=== PATIENT | male | born 1995 | race Caucasian/White ===

== ENCOUNTER 2018-03-20 21:33 | Emergency (ER) | payer OTHER ==
[2018-03-20 21:34] VITALS: BMI 36.2
[2018-03-20] MEDS ORDERED: Sodium Chloride 0.9% 1,000 ML IV ONE ×2 (22:16→22:29)
[2018-03-20 22:45] LABS: BASO % 0.3 % (0.0-2.0); EOS # 0.1 K/uL (0.0-0.7); EOS % 0.4 % (0.0-4.0); HEMOGLOBIN 15.1 g/dL (12.0-18.0); LYMPH % 6.2 % (20.0-40.0); MEAN CELL VOLUME 82.4 fL (80.0-94.0); MEAN CORPUSCULAR HEMOGLOBIN 28.8 pg (27.0-31.0); MEAN PLATELET VOLUME 7.8 fL (7.2-11.7); MONO # 0.8 K/uL (0.0-0.8); MONO % 5.1 % (0.0-10.0); NEUT # 14.4 K/uL (1.8-7.0); PLATELET COUNT 251 K/uL (130-400); RBC 5.25 Mil/uL (4.40-5.90); RED CELL DISTRIBUTION WIDTH 13.5 % (11.5-14.5)
[2018-03-20 22:46] LABS: WHITE BLOOD COUNT 16.3 K/uL (4.8-10.8)
[2018-03-20 22:49] LABS: URINE BACTERIA RARE (<OCC); URINE BILIRUBIN NEGATIVE (NEGATIVE); URINE BLOOD 1+ (NEGATIVE); URINE CLARITY Clear (Clear); URINE COLOR Yellow (YELLOW); URINE GLUCOSE (UA) NORMAL (Normal); URINE LEUKOCYTE ESTERASE NEG Leu/uL (Negative); URINE PROTEIN NEGATIVE (NEGATIVE); URINE UROBILINOGEN NORMAL mg/dL (0.2-1.0)
[2018-03-20 22:58] LABS: ALB/GLOB RATIO 1.3 (1.0-2.1); ALBUMIN 4.7 g/dL (3.5-5.0); ALT/SGPT 46 U/L (21-72); AST/SGOT 31 U/L (17-59); BLOOD UREA NITROGEN 14 mg/dL (9-20); CALCIUM 9.2 mg/dl (8.6-10.4); GFR AFRICAN-AMERICAN > 60; GFR NON-AFRICAN AMERICAN > 60; LIPASE 53 U/L (23-300)
[2018-03-20 23:04] LABS: BANDS 3 % (0-2); EOSINOPHIL 1 % (0-4); LYMPHOCYTE 5 % (20-40); MONOCYTE 5 % (0-10); NEUTROPHIL 86 % (50-75); PLATELET ESTIMATE NORMAL (NORMAL); TOTAL CELLS COUNTED 100
--- NOTE | 2018-03-20 23:50 | C.PDOC ---
History Of Present Illness <Rocael Almonte DO - Last Filed: 03/21/18 01:14> <Dick Caballero - Last Filed: 03/21/18 04:38> 22 y/o male presents to the ED complaining of epigastric pain developing since yesterday. Associated with diarrhea and vomiting, non-bilious and non-bloody. Patient admits symptoms began after consuming hot dogs and beer yesterday. Otherwise denies any fever, chest pain, SOB, or blood in the stool/urine. (Rocael Almonte DO) History Per: Patient History/Exam Limitations: no limitations Onset/Duration Of Symptoms: Days Current Symptoms Are (Timing): Still Present Location Of Pain/Discomfort: Epigastric <Rocael Almonte DO - Last Filed: 03/21/18 01:14> Context: Food Severity: Moderate Pain Scale Rating Of: 5 <Dick Caballero - Last Filed: 03/21/18 04:38> Time Seen by Provider: 03/20/18 22:05 Chief Complaint (Nursing): Chest Pain Past Medical History Reviewed: Historical Data, Nursing Documentation, Vital Signs - Medical History PMH: No Chronic Diseases Surgical History: No Surg Hx Family History: States: No Known Family Hx - Social History Hx Tobacco Use: No (former) Hx Alcohol Use: Yes Hx Substance Use: No - Immunization History Hx Tetanus Toxoid Vaccination: No Hx Influenza Vaccination: No Hx Pneumococcal Vaccination: No <Rocael Almonte DO - Last Filed: 03/21/18 01:14> Vital Signs: Last Vital Signs Temp 101 F H 03/20/18 23:59 Pulse 99 H 03/21/18 03:09 Resp 17 03/21/18 03:09 BP 119/73 03/20/18 23:59 Pulse Ox 96 03/21/18 03:09 - [facility] Procedures TETANUS TOXOID ADMINIST (04/13/13) Review Of Systems Constitutional: Negative for: Fever Cardiovascular: Negative for: Chest Pain Respiratory: Negative for: Shortness of Breath Gastrointestinal: Positive for: Vomiting, Abdominal Pain, Diarrhea. Negative for: Hematochezia Genitourinary: Negative for: Hematuria <Rocael Almonte DO - Last Filed: 03/21/18 01:14> Physical Exam - Physical Exam Appears: Non-toxic, No Acute Distress Skin: Normal Color, Warm, Dry Head: Atraumatic, Normacephalic Eye(s): bilateral: Normal Inspection, PERRL, EOMI Nose: Normal Oral Mucosa: Moist Neck: Normal ROM, Supple Chest: Symmetrical, No Deformity, No Tenderness Cardiovascular: Rhythm Regular, No Murmur Respiratory: Normal Breath Sounds, No Rales, No Rhonchi, No Wheezing Gastrointestinal/Abdominal: Soft, Tenderness (diffuse abdominal tenderness to palpation), No Guarding, No Rebound Back: Normal Inspection, No CVA Tenderness Extremity: Bilateral: Atraumatic, Normal Color And Temperature, Normal ROM Neurological/Psych: Oriented x3, Normal Speech <Rocael Almonte DO Last Filed: 03/21/18 01:14> ED Course And Treatment - Laboratory Results Result Diagrams: 03/20/18 22:41 03/20/18 22:41 ECG: Interpreted By Me, Viewed By Me ECG Rhythm: Sinus Tachycardia ECG Interpretation: No Acute Changes Rate From EC <Rocael Almonte DO Last Filed: 03/21/18 01:14> - Laboratory Results Result Diagrams: 03/20/18 22:41 03/20/18 22:41 O2 Sat by Pulse Oximetry: 96 Pulse Ox Interpretation: Normal Progress Note: pt feels fine and wants to go home. Will return in 12-24 Hours if symtoms recur Reevaluation Time: 04:34 Reassessment Condition: Improved <Dick Caballero - Last Filed: 03/21/18 04:38> Medical Decision Making <Rocael Almonte DO - Last Filed: 03/21/18 01:14> <Dick Caballero - Last Filed: 03/21/18 04:38> Medical Decision Making: Initial Impression: 22 y/o male with epigastric pain Time: 22:16 Initial Plan: --EKG --CMP --Lipase --Troponin I --CBC --D dimer --Urinalysis --Chest X-ray --CT A/P with IV contrast --IV fluids --Zofran 4 mg IVP --Pepcid 20 mg IVP --Reevaluation Labs reviewed, revealing elevated WBC of 16K and 3 bands. Trop negative. D- dimer <200. 1:00AM Patient endorsed to Dr. Caballero at this time, pending CT result. (Rocael Almonte DO) Disposition <Rocael Almonte DO - Last Filed: 03/21/18 01:14> Counseled Patient/Family Regarding: Studies Performed, Diagnosis, Need For Followup, Rx Given - Disposition Disposition Time: 01:00 <Dick Caballero - Last Filed: 03/21/18 04:38> - Disposition Referrals: [facility] at [facility] [Outside] [facility] [Outside] Disposition: HOME/ ROUTINE Condition: FAIR Additional Instructions: Please return if symptoms recur Prescriptions: Metronidazole [Flagyl] 500 mg PO TID #21 tablet Ondansetron ODT [Zofran ODT] 1 odt PO BID PRN #6 odt PRN Reason: Nausea/Vomiting Instructions: Nausea and Vomiting, Adult (DC), Gallstones (DC) Forms: [employer] (Salvadorean) - Clinical Impression Clinical Impression: Gall stones, Nausea & vomiting - Scribe Statement The provider has reviewed the documentation as recorded by the Scribe (Spring Avery) <Rocael Almonte DO - Last Filed: 03/21/18 01:14> <Dick Caballero - Last Filed: 03/21/18 04:38> - Scribe Statement Provider Attestation: All medical record entries made by the Scribe were at my direction and personally dictated by me. I have reviewed the chart and agree that the record accurately reflects my personal performance of the history, physical exam, medical decision making, and the department course for this patient. I have also personally directed, reviewed, and agree with the discharge instructions and disposition. (Rocael Almonte DO) Physician Patient Turnover Patient Signed Over To: Dick Caballero Handoff Comments: pending CT results <Rocael Almonte DO - Last Filed: 03/21/18 01:14> <Rocael Almonte DO - Last Filed: 03/21/18 01:14> - Laboratory Results Result Diagrams: 03/20/18 22:41 03/20/18 22:41 - ECG O2 Sat by Pulse Oximetry: 96 <Dick Caballero - Last Filed: 03/21/18 04:38> - Progress ED Course And Treament: CT A/P: Name: BEN WOODARD Age: 22Years M Date: 03/20/2018 Requesting Physician: Rocael Almonte : 1995 [employer] Procedure Ordered As Accession Number of Images CT ABDOMEN/PELVIS W CT ABD PELVIS IV CONTRAST ONLY [id number] Provided Clinical History: diffuse abdominal pain EXAM: CT Abdomen and Pelvis With Intravenous Contrast CLINICAL HISTORY: 22 years old, male; Pain; Abdominal pain; Patient HX: 01-15-13; Additional info: Diffuse abdominal pain TECHNIQUE: Axial computed tomography images of the abdomen and pelvis with intravenous contrast. All CT scans at this facility use one or more dose reduction techniques, viz.: automated exposure control; ma/kV adjustment per patient size (including targeted exams where dose is matched to indication; i.e. head); or iterative reconstruction technique. 776 images are submitted.Sagittal , axial and coronal MPR reformatted images are submitted. Axial images are submitted in soft tissue and lung windows. CONTRAST: 100 mL of [id number] administered intravenously. COMPARISON: CT - ABD/PELVIS W/O CONT 2013-01-15 12:09 FINDINGS: Lung bases: There is noncalcified incompletely visualized pulmonary nodule in the right middle lobe seen on image 1 series 5. Heart: Small right pericardial fluid. ABDOMEN: Liver: Fatty liver. Gallbladder and bile ducts: There are gallstones in the fundus of the gallbladder with gallbladder wall thickening. Pancreas: Unremarkable. No mass. No ductal dilation. Spleen: Unremarkable. No splenomegaly. Adrenals: Unremarkable. No mass. Kidneys and ureters: Unremarkable. No solid mass. No hydronephrosis. Stomach and bowel: There are nonspecific fluid filled stomach, small bowel loops and right colon. These findings can represent ileus versus gastroenteritis/enterocolitis versus slow transit versus peristalsis. Diverticulosis. No obstruction. PELVIS: Appendix: Normal appendix. Bladder: Urachal remnant.Bladder distention. Correlation with patient's voiding status is recommended. Reproductive: Enlarged prostate gland. ABDOMEN and PELVIS: Intraperitoneal space: Unremarkable. No free air. No significant fluid collection. Bones/joints: No acute fracture. No dislocation. Soft tissues: There is a fat-containing umbilical hernia. Vasculature: Unremarkable. No abdominal aortic aneurysm. Lymph nodes: Subcentimeter mesenteric lymph nodes. IMPRESSION: 1. There are gallstones in the fundus of the gallbladder with gallbladder wall thickening. 2. There are nonspecific fluid filled stomach, small bowel loops and right colon. These findings can represent ileus versus gastroenteritis/enterocolitis versus slow transit versus peristalsis. Thank you for allowing us to participate in the care of your patient. Dictated and Authenticated by: Juancho Nava MD 03/21/2018 1:09 AM Eastern Time ([place] & [place]) (Dick Caballero)
[2018-03-20] MEDS ORDERED: Iodixanol 320 MG/ML 100 ML BOTTLE IV ONE (23:59)
[2018-03-21] VITALS: BP 119/73; TEMP 101; O2SAT 96
[2018-03-21] MEDS ORDERED: Sodium Chloride 0.9% 1,000 ML IV ONE (00:54)
[2018-03-21] MEDS ORDERED: Piperacillin/Tazobact 3.375 gm 100 ML IVPB STA (01:27)
[2018-03-21] MEDS ORDERED: Piperacillin/Tazobact 3.375 gm 100 ML IVPB ONE (01:41)
[2018-03-21 03:10] VITALS: PULSE 99
[2018-03-21 05:07] VITALS: RESP 18
--- NOTE | 2018-03-21 08:45 | RAD ---
HISTORY: r/o infiltrate COMPARISON: No prior. FINDINGS: LUNGS: No active pulmonary disease. PLEURA: No significant pleural effusion identified, no pneumothorax apparent. CARDIOVASCULAR: Normal. OSSEOUS STRUCTURES: No significant abnormalities. VISUALIZED UPPER ABDOMEN: Normal. OTHER FINDINGS: None. IMPRESSION: No active disease.
--- NOTE | 2018-03-21 10:11 | CT ---
PROCEDURE: CT abdomen pelvis dated CT 03/21/18 HISTORY: Diffuse abdominal pain COMPARISON: Comparison made with prior CT scan at the [facility] is 01/15/2013 TECHNIQUE: Contiguous helical/transaxial sections of the abdomen pelvis performed following intravenous injection of approximately 100 cc Visipaque 320. Additional 2D sagittal and coronal reformats generated. Radiation dose: Total exam DLP = 1290.84 mGy-cm. This CT exam was performed using one or more of the following dose reduction techniques: Automated exposure control, adjustment of the mA and/or kV according to patient size, and/or use of iterative reconstruction technique. . FINDINGS: LOWER THORAX: Unremarkable. LIVER: Liver is enlarged measuring nearly 21 cm in CC dimension. Mild to moderate diffuse fatty hepatic infiltration. No obvious hepatic mass collection or calcification. Portal and splenic veins are opacified. GALLBLADDER AND BILE DUCTS: Gallbladder is physiologically distended and appears to contain multiple intraluminal calculi. PANCREAS: Unremarkable. No gross lesion or ductal dilatation. SPLEEN: Spleen is enlarged measuring nearly 15 cm in AP dimension. ADRENALS: No adrenal masses. KIDNEYS AND URETERS: Unremar kidneys demonstrate symmetric nephrograms. No evidence of nephrolithiasis or. VASCULATURE: No evidence of abdominal aortic iliac artery aneurysm. BOWEL: Evaluation of the bowel is limited due to the lack of oral contrast. Stomach is incompletely distended which in part accounts thick-walled appearance. There are a multiple loops of nondistended fluid-filled small bowel nonspecific. No evidence of acute mechanical bowel obstruction. Stool and air seen throughout the large bowel. No definitive evidence of abnormal mural wall thickening. . There may be occasional colonic diverticulum. APPENDIX: . The appendix unremarkable. PERITONEUM: Unremarkable. No free fluid. No free air. Small fat and umbilical hernia. LYMPH NODES: Unremarkable. No enlarged lymph nodes. BLADDER: The urinary bladder incompletely distended which in part accounts thick-walled appearance. No evidence of intraluminal urinary bladder calculi. REPRODUCTIVE: Unremarkable. BONES: Minor degenerative spondylosis lower thoracic region OTHER FINDINGS: None. IMPRESSION: Cholelithiasis. Hepatomegaly with fatty infiltration. Splenomegaly. . Multiple nondistended fluid-filled loops of small bowel seen in the upper mid occasional colonic diverticulum. Through all placed in PA review folder followup
--- NOTE | 2018-03-23 05:32 | CARD ---
APPROVED REPORT EKG Measurement Heart [id number] <Conclusion> Sinus tachycardia Otherwise normal ECG
== END 2018-03-21 05:01 | disposition home or self-care (01) ==
LOC: C.ER 21:33
DX: K80.20 Calculus of gallbladder without cholecystitis without obstruction (principal); R11.2 Nausea with vomiting, unspecified
CPT/HCPCS: 71045; 74177; 80053; 81001; 83690; 84484; 85025; 85378; 93005; 96361; 96365; 96375; 99285; J2405; J2543; J7030; Q9967

== ENCOUNTER 2018-05-10 20:49 | Emergency (ER) | payer OTHER, MEDICAID ==
[2018-05-10 20:50] VITALS: BMI 36.2
[2018-05-10 20:58] VITALS: BP 138/87; PULSE 99; RESP 19; TEMP 98.5; O2SAT 100
--- NOTE | 2018-05-10 21:06 | C.PDOC ---
History Of Present Illness 23 year old male presents to the ER via EMS for possible suicidal ideation. On arrival patient denies homicidal or suicidal ideation, he states he was just trying to see how his fiance reacts to what he says. Patient admits to a sip of ETOH tonight, denies drug use. Chief Complaint (Nursing): Psychiatric Evaluation History Per: Patient History/Exam Limitations: no limitations Onset/Duration Of Symptoms: Hrs Suicide/Self Injury Attempted (Context): None Modifying Factor(s): Alcohol Associated Symptoms: denies: Depression, Suicidal Thoughts Involuntary Hold By: None Recent travel outside of the [place]: No Past Medical History Reviewed: Historical Data, Nursing Documentation, Vital Signs Vital Signs: Last Vital Signs Temp 98.5 F 05/10/18 20:54 Pulse 99 H 05/10/18 20:54 Resp 19 05/10/18 20:54 BP 138/87 05/10/18 20:54 Pulse Ox 100 05/10/18 21:13 - [facility] Procedures TETANUS TOXOID ADMINIST (04/13/13) Family History: States: Unknown Family Hx - Social History Hx Tobacco Use: No (former) Hx Alcohol Use: No Hx Substance Use: No - Immunization History Hx Tetanus Toxoid Vaccination: No Hx Influenza Vaccination: No Hx Pneumococcal Vaccination: No Review Of Systems Constitutional: Negative for: Fever, Chills Cardiovascular: Negative for: Chest Pain, Palpitations Respiratory: Negative for: Cough, Shortness of Breath Gastrointestinal: Negative for: Nausea, Vomiting Psych: Negative for: Suicidal ideation, Other (Homicidal ideation) Physical Exam - Physical Exam Appears: Non-toxic Skin: Normal Color, Warm, Dry Head: Atraumatic, Normacephalic Eye(s): bilateral: Normal Inspection Oral Mucosa: Moist Neck: Normal, Supple Chest: Symmetrical, No Tenderness Cardiovascular: Rhythm Regular Respiratory: Normal Breath Sounds, No Rales, No Rhonchi, No Wheezing Gastrointestinal/Abdominal: Soft, No Tenderness Neurological/Psych: Oriented x3, Normal Speech ED Course And Treatment O2 Sat by Pulse Oximetry: 100 (Room air) Pulse Ox Interpretation: Normal Progress Note: Blood work and urinalysis ordered. Disposition Discussed With : Mahesh Reece Counseled Patient/Family Regarding: Diagnosis - Disposition Referrals: [facility] [Outside] Disposition: HOME/ ROUTINE Disposition Time: 21:20 Condition: STABLE Instructions: Depression, Adult (DC) Forms: [employer] (Tuvaluan) - POA Present On Arrival: None - Clinical Impression Clinical Impression: Depressive disorder - Scribe Statement The provider has reviewed the documentation as recorded by the Scribe Kevin Glynn All medical record entries made by the Scribe were at my direction and personally dictated by me. I have reviewed the chart and agree that the record accurately reflects my personal performance of the history, physical exam, medical decision making, and the department course for this patient. I have also personally directed, reviewed, and agree with the discharge instructions and disposition.
[2018-05-10 21:43] LABS: SQUAMOUS EPITHIAL < 1 /hpf (0-5); URINE BACTERIA RARE (<OCC); URINE BILIRUBIN NEGATIVE (NEGATIVE); URINE BLOOD NEGATIVE (NEGATIVE); URINE CLARITY Hazy (Clear); URINE GLUCOSE (UA) NORMAL (Normal); URINE LEUKOCYTE ESTERASE NEG Leu/uL (Negative); URINE PROTEIN 1+ mg/dL (NEGATIVE)
[2018-05-10 21:45] LABS: URINE COLOR YELLOW (YELLOW)
[2018-05-10 21:47] LABS: BASO # 0.1 K/uL (0.0-0.2); BASO % 0.4 % (0.0-2.0); EOS # 0.3 K/uL (0.0-0.7); EOS % 1.9 % (0.0-4.0); LYMPH # 3.7 K/uL (1.0-4.3); LYMPH % 27.7 % (20.0-40.0); MEAN CELL VOLUME 81.6 fL (80.0-94.0); MEAN CORPUSCULAR HEMOGLOBIN 28.5 pg (27.0-31.0); MEAN CORPUSCULAR HGB CONC 34.9 g/dL (33.0-37.0); MEAN PLATELET VOLUME 7.9 fL (7.2-11.7); MONO # 0.8 K/uL (0.0-0.8); MONO % 5.9 % (0.0-10.0); NEUT # 8.6 K/uL (1.8-7.0); NEUT % 64.1 % (50.0-75.0); NRBC % 0.6 % (0.0-2.0); RBC 5.63 Mil/uL (4.40-5.90); RED CELL DISTRIBUTION WIDTH 13.9 % (11.5-14.5); WHITE BLOOD COUNT 13.4 K/uL (4.8-10.8)
[2018-05-10 22:25] LABS: ALB/GLOB RATIO 1.4 (1.0-2.1); ALT/SGPT 50 U/L (21-72); AST/SGOT 36 U/L (17-59); BLOOD UREA NITROGEN 10 mg/dL (9-20); CALCIUM 9.8 mg/dl (8.6-10.4); GFR AFRICAN-AMERICAN > 60; GFR NON-AFRICAN AMERICAN > 60
[2018-05-10 22:57] LABS: BARBITURATES, UR NEGATIVE (NEGATIVE); BENZODIAZEPINES, UR NEGATIVE (NEGATIVE); OPIATES, UR NEGATIVE (NEGATIVE); PHENCYCLIDINE, UR NEGATIVE (NEGATIVE)
== END 2018-05-10 21:36 | disposition home or self-care (01) ==
LOC: C.ER 20:49
DX: F32.9 Major depressive disorder, single episode, unspecified (principal)

== ENCOUNTER 2018-10-04 10:08 | Emergency (ER) | payer OTHER, MEDICAID ==
[2018-10-04 10:08] VITALS: BMI 36.2
[2018-10-04 10:48] VITALS: O2SAT 98
[2018-10-04] MEDS ORDERED: Sodium Chloride 0.9% 1,000 ML IV STA (11:20)
--- NOTE | 2018-10-04 12:45 | US ---
Date of service: 10/04/2018 HISTORY: epigastric and RUQ abd pain COMPARISON: CT abdomen and pelvis with contrast performed 03/21/18 TECHNIQUE: Sonographic evaluation of the right upper quadrant of the abdomen. FINDINGS: LIVER: Measures 17.0 cm in length. Echogenic liver may be seen in setting of hepatic parenchymal disease or fatty infiltration. No focal hepatic mass identified. The main portal vein appears patent with normal directional flow. No intrahepatic bile duct dilatation. GALLBLADDER: Gallstones. Gallbladder sludge. No gallbladder wall thickening or pericholecystic edema. Negative sonographic Francis's sign as assessed by the spot machine operator. COMMON BILE DUCT: Measures 6 mm. PANCREAS: Not well-visualized. RIGHT KIDNEY: Measures approximately 11.6 x 4.9 x 4.8 cm. No obstructing calculus or hydronephrosis. AORTA: Limited visualization appears grossly unremarkable. IVC: Limited visualization appears grossly unremarkable. OTHER FINDINGS: None . IMPRESSION: Echogenic liver may be seen in setting of hepatic parenchymal disease or fatty infiltration. Cholelithiasis. Gallbladder sludge. Negative sonographic Francis's sign as assessed by the spot machine operator. No evidence of gallbladder wall thickening.
--- NOTE | 2018-10-04 13:02 | C.PDOC ---
History Of Present Illness 23 years old male presents to ED for complaints of epigastric abdominal pain that began 3 days ago. Patient reports couple episodes of associated vomiting. Denies diarrhea, fever, or any other complaints. Patient states pain worsened today and he was unable to sleep which prompted the ED visit. Time Seen by Provider: 10/04/18 10:50 Chief Complaint (Nursing): Abdominal Pain History Per: Patient History/Exam Limitations: no limitations Onset/Duration Of Symptoms: Hrs Current Symptoms Are (Timing): Still Present Location Of Pain/Discomfort: Epigastric Radiation Of Pain To:: None Associated Symptoms: Vomiting. denies: Fever, Chills, Diarrhea Exacerbating Factors: None Alleviating Factors: None Last Bowel Movement: Today Recent travel outside of the [place]: No Past Medical History Reviewed: Historical Data, Nursing Documentation, Vital Signs Vital Signs: Last Vital Signs Temp 98.3 F 10/04/18 10:38 Pulse 85 10/04/18 10:38 Resp 17 10/04/18 10:38 BP 150/83 10/04/18 10:38 Pulse Ox 98 10/04/18 10:38 - Medical History PMH: No Chronic Diseases - [facility] Procedures TETANUS TOXOID ADMINIST (04/13/13) Family History: States: Unknown Family Hx - Social History Hx Tobacco Use: No (former) Hx Alcohol Use: No Hx Substance Use: No - Immunization History Hx Tetanus Toxoid Vaccination: No Hx Influenza Vaccination: No Hx Pneumococcal Vaccination: No Review Of Systems Constitutional: Negative for: Fever, Chills Gastrointestinal: Positive for: Nausea, Vomiting, Abdominal Pain (Epigastric ). Negative for: Diarrhea Genitourinary: Negative for: Dysuria Skin: Negative for: Rash Neurological: Negative for: Weakness, Numbness Physical Exam - Physical Exam Appears: Non-toxic, No Acute Distress Skin: Normal Color, Warm, Dry, No Rash Head: Atraumatic, Normacephalic Eye(s): bilateral: Normal Inspection, PERRL, EOMI Oral Mucosa: Moist Neck: Normal ROM, Supple Chest: Symmetrical, No Tenderness Cardiovascular: Rhythm Regular, No Murmur Respiratory: Normal Breath Sounds, No Rales, No Rhonchi, No Wheezing Gastrointestinal/Abdominal: Soft, Tenderness (Epigastric ) Extremity: Normal ROM Extremity: Bilateral: Atraumatic, Normal Color And Temperature, Normal ROM Pulses: Left Radial: Normal, Right Radial: Normal Neurological/Psych: Oriented x3, Normal Speech Gait: Steady ED Course And Treatment O2 Sat by Pulse Oximetry: 98 (RA) Pulse Ox Interpretation: Normal - CT Scan/US Abdomen US Other Rad Studies (CT/US): Read By Radiologist, Radiology Report Reviewed CT/US Interpretation: Date of service: 10/04/2018. HISTORY: epigastric and RUQ abd pain. COMPARISON: CT abdomen and pelvis with contrast performed 03/21/18. TECHNIQUE: Sonographic evaluation of the right upper quadrant of the abdomen. FINDINGS: LIVER: Measures 17.0 cm in length. Echogenic liver may be seen in setting of hepatic parenchymal disease or fatty infiltration. No focal hepatic mass identified. The main portal vein appears patent with normal directional flow. No intrahepatic bile duct dilatation. GALLBLADDER: Gallstones. Gallbladder sludge. No gallbladder wall thickening or pericholecystic edema. Negative sonographic Francis's sign as assessed by the makeup instructor. COMMON BILE DUCT: Measures 6 mm. PANCREAS: Not well-visualized. RIGHT KIDNEY: Measures approximately 11.6 x 4.9 x 4.8 cm. No obstructing calculus or hydronephrosis. AORTA: Limited visualization appears grossly unremarkable. IVC: Limited visualization appears grossly unremarkable. OTHER FINDINGS: None . IMPRESSION: Echogenic liver may be seen in setting of hepatic parenchymal disease or fatty infiltration. Cholelithiasis. Gallbladder sludge. Negative sonographic Francis's sign as assessed by the makeup instructor. No evidence of ga llbladder wall thickening. Progress Note: Administred Protonix, Zofran,. Toradol, and IV Fluids. Ordered blood work, urinalysis, and US abdomen. On re-evaluation patient feels better and is stable to eb d/c home with PMD follow up. Disposition - Disposition Referrals: [facility] [Outside] Disposition: HOME/ ROUTINE Disposition Time: 14:18 Condition: IMPROVED Additional Instructions: Follow up with PMD/Clinic within 1-2 days. Return to Ed if feel worse. Instructions: Gallstones (DC) Forms: [facility] (Telugu) - Clinical Impression Clinical Impression: Biliary colic - PA / VIDEO TECHNICIAN / Resident Statement MD/DO has reviewed & agrees with the documentation as recorded. - Scribe Statement The provider has reviewed the documentation as recorded by the Sherineibfiona Granados All medical record entries made by the Scribe were at my direction and personally dictated by me. I have reviewed the chart and agree that the record accurately reflects my personal performance of the history, physical exam, medical decision making, and the department course for this patient. I have also personally directed, reviewed, and agree with the discharge instructions and disposition.
[2018-10-04 14:41] LABS: URINE COLOR AMBER (YELLOW)
[2018-10-04 14:42] LABS: URINE BILIRUBIN NEGATIVE (NEGATIVE); URINE BLOOD 1+ (NEGATIVE); URINE CLARITY Clear (Clear); URINE GLUCOSE (UA) Normal (Normal); URINE PROTEIN NEGATIVE (NEGATIVE); URINE UROBILINOGEN Normal mg/dL (0.2-1.0)
[2018-10-04 14:43] LABS: URINE LEUKOCYTE ESTERASE NEG Leu/uL (Negative)
[2018-10-04 17:25] VITALS: RESP 16; TEMP 98.6
[2018-10-04 17:28] VITALS: BP 125/81; PULSE 84
== END 2018-10-04 14:32 | disposition home or self-care (01) ==
LOC: C.ER 10:08
DX: K80.70 Calculus of gallbladder and bile duct without cholecystitis without obstruction (principal)
CPT/HCPCS: 76705; 81001; 96374; 96375; 99285; C9113; J1885; J2405; J7030